=== PATIENT | male | born 1930 | race Caucasian/White ===

== ENCOUNTER 2017-11-05 11:13 | Day surgery (SDC) | payer MEDICARE, MEDICAID ==
[2017-11-04 11:06] VITALS: BMI 23.9
[2017-11-05] MEDS ORDERED: Midazolam 2 MG/2 ML VIAL ONE (14:14)
[2017-11-05] MEDS ORDERED: Propofol 10 mg/ml Inj (20 ML) ONE (14:15)
[2017-11-05] MEDS ORDERED: HYDROmorphone 0.5 mg/0.5 ml ISec IVP PRN (14:49)
[2017-11-05] MEDS ORDERED: Lactated Ringer's 1,000 ML IV SCH (15:00)
[2017-11-05 17:30] VITALS: BP 137/67; PULSE 64; RESP 20; TEMP 98; O2SAT 98
--- NOTE | 2017-11-07 07:50 | OP ---
PROCEDURE DATE: 11/05/2017 PREOPERATIVE DIAGNOSES: Prostatic hypertrophy, outlet obstruction, rule out stricture. POSTOPERATIVE DIAGNOSES: Stricture of the bulbous urethra, prostatic hypertrophy causing obstruction. PROCEDURE: Cystoscopic dilatation. DESCRIPTION: While the patient in lithotomy position and after starting anesthesia, genitalia prepped and draped in sterile fashion. The patient given 400 mg of Cipro IV. A #17 scope inserted under direct vision which revealed the urethra normal down to the bulbous area. There was mild stricture. This dilated. A large prostate causing obstruction of the prostatic urethra. Prostatic urethra 3.5 cm. The main enlargement on the left side of the prostate, which was coming and obstructing the urethra as a curtain. Bladder itself trabeculated, 3+, with saccule and sign of outlet obstruction. After emptying the bladder, the scope removed, urethra dilated, and the patient transferred to the recovery room in stable condition. Nisreen Gonsalves MD
== END 2017-11-05 17:25 | disposition home or self-care (01) ==
LOC: C.SDS 11:13
PROVIDERS: ATTEND Specialist
DX: N40.1 Benign prostatic hyperplasia with lower urinary tract symptoms (principal); N35.9 Urethral stricture, unspecified; N13.8 Other obstructive and reflux uropathy
CPT/HCPCS: 52281; 82948; J1170